=== PATIENT | male | born 1950 | race Caucasian/White ===

== ENCOUNTER 2023-07-15 13:02 | Outpatient (CLI) | payer MEDICARE, SELFPAY | END 2023-07-15 13:03 | disposition home or self-care (01) | PROVIDERS: PCP Family Medicine; Visit Provider Nurse Practitioner Family | DX: E11.621 Type 2 diabetes mellitus with foot ulcer (principal); L97.516 Non-pressure chronic ulcer of other part of right foot with bone involvement without evidence of necrosis; Z79.84 Long term (current) use of oral hypoglycemic drugs | CPT/HCPCS: 11043; 87070; 87186; 99203 ==

== ENCOUNTER 2023-07-22 13:21 | Outpatient (CLI) | payer MEDICARE, SELFPAY | END 2023-07-22 13:22 | disposition home or self-care (01) | LOC: WOUND 13:22 | PROVIDERS: PCP Family Medicine; Visit Provider Nurse Practitioner Family | DX: E11.621 Type 2 diabetes mellitus with foot ulcer (principal); L97.516 Non-pressure chronic ulcer of other part of right foot with bone involvement without evidence of necrosis; Z79.84 Long term (current) use of oral hypoglycemic drugs | CPT/HCPCS: 11043 ==

== ENCOUNTER 2023-07-22 15:10 | Outpatient (CLI) | payer MEDICARE, SELFPAY ==
--- NOTE | 2023-07-22 15:15 | CRLHL7_ITS ---
For Patients: As a result of the Century Cures Act, medical imaging exams and procedure reports are released immediately into your electronic medical record. You may view this report before your referring provider. If you have questions, please contact your health care provider. Indication: non healing wound, assess for osteomyelitis Technique: Right foot 3 views Comparison: None Findings: Demineralization is present about the 2nd MTP joint with an associated fracture fragment at the lateral base of the 2nd toe proximal phalanx. Vascular calcifications are present. Midfoot alignment is normal. Small posterior calcaneal spur. Degenerative changes at the IP joints. Impression: Displaced intra-articular fracture deformity at the 2nd toe proximal phalanx extending to the 2nd MCP joint. Demineralization about the 2nd MTP joint with soft tissue swelling suggesting septic arthritis. Dictated by Andrea Benson MD @ 07/24/2023 8:17:53 AM (Electronically Signed)
== END 2023-07-22 15:11 | disposition home or self-care (01) ==
LOC: RAD 15:10
PROVIDERS: PCP Family Medicine; Visit Provider Nurse Practitioner Family
DX: T81.89XA Other complications of procedures, not elsewhere classified, initial encounter (principal); S92.911A Unspecified fracture of right toe(s), initial encounter for closed fracture; M79.89 Other specified soft tissue disorders
CPT/HCPCS: 73630

== ENCOUNTER 2023-07-25 12:51 | Outpatient (CLI) | payer MEDICARE, SELFPAY ==
--- NOTE | 2023-07-25 13:00 | CRLHL7_ITS ---
For Patients: As a result of the Century Cures Act, medical imaging exams and procedure reports are released immediately into your electronic medical record. You may view this report before your referring provider. If you have questions, please contact your health care provider. CLINICAL HISTORY: Nonhealing right lower extremity wound. COMPARISON: None. TECHNIQUE: The lower extremity arteries were examined per exam specific protocol with taylor-scale ultrasound, color-flow and Doppler spectral analysis. Peak systolic velocities (PSV), Doppler waveform quality and velocity ratios, if applicable, were documented at sites per exam specific protocol. FINDINGS: Right: WELDER EXPERIMENTAL: 139, triphasic. DFA: 149, triphasic. FA Prox: 96, triphasic. FA MID: 111, triphasic. FA DIST: 63, triphasic. POP A: 58, triphasic. HILARY A: 104, monophasic. HAND SAMPLE MAKER: 123, monophasic. SAIRA: 22, monophasic. DPA: 41, monophasic. Left: WELDER EXPERIMENTAL: 119, triphasic. DFA: 86, triphasic. FA PROX: 91, triphasic. FA MID: 147, triphasic. FA DIST: 63, triphasic. POP A: 77, triphasic. HILARY A: 66, biphasic. HAND SAMPLE MAKER: -. SAIRA: 94, triphasic. DPA: 92, triphasic. Right lower extremity: Predominantly multiphasic waveforms are seen throughout with monophasic waveforms in the pedal arteries. No hemodynamically significant stenoses or occlusions are identified. Left lower extremity: Multiphasic waveforms are seen throughout. The posterior tibial artery is distally occluded. No evidence of hemodynamically significant stenoses. IMPRESSION: 1. Right lower extremity: Predominantly multiphasic waveforms throughout. No evidence of hemodynamically significant stenoses or occlusions. 2. Left lower extremity: Multiphasic waveforms throughout. Posterior tibial artery is distally occluded. No evidence of hemodynamically significant stenoses. Dictated by Bernard Mckeon MD @ 07/28/2023 5:02:09 PM (Electronically Signed)
== END 2023-07-25 12:52 | disposition home or self-care (01) ==
LOC: US 12:52
PROVIDERS: PCP Family Medicine; Visit Provider Nurse Practitioner Family
DX: L97.516 Non-pressure chronic ulcer of other part of right foot with bone involvement without evidence of necrosis (principal)
CPT/HCPCS: 93926

== ENCOUNTER 2023-07-29 08:57 | Outpatient (CLI) | payer MEDICARE, SELFPAY | END 2023-07-29 08:58 | disposition home or self-care (01) | LOC: WOUND 08:57 | PROVIDERS: PCP Family Medicine; Visit Provider Nurse Practitioner Family | DX: E11.621 Type 2 diabetes mellitus with foot ulcer (principal); L97.516 Non-pressure chronic ulcer of other part of right foot with bone involvement without evidence of necrosis; Z79.84 Long term (current) use of oral hypoglycemic drugs | CPT/HCPCS: 11043; 99212 ==

== ENCOUNTER 2023-09-09 13:22 | Outpatient (CLI) | payer MEDICARE, SELFPAY | END 2023-09-09 13:23 | disposition home or self-care (01) | LOC: WOUND 13:22 | PROVIDERS: PCP Family Medicine; Visit Provider Nurse Practitioner Family | DX: E11.621 Type 2 diabetes mellitus with foot ulcer (principal); T87.81 Dehiscence of amputation stump; Z79.84 Long term (current) use of oral hypoglycemic drugs | CPT/HCPCS: 11042; G0463 ==

== ENCOUNTER 2023-09-16 12:50 | Outpatient (CLI) | payer MEDICARE, SELFPAY | END 2023-09-16 12:51 | disposition home or self-care (01) | LOC: WOUND 12:51 | PROVIDERS: PCP Family Medicine; Visit Provider Physician Assistant | DX: E11.621 Type 2 diabetes mellitus with foot ulcer (principal); T81.30XA Disruption of wound, unspecified, initial encounter; Z89.421 Acquired absence of other right toe(s); Z79.84 Long term (current) use of oral hypoglycemic drugs | CPT/HCPCS: 97597 ==

== ENCOUNTER 2023-09-23 12:54 | Outpatient (CLI) | payer MEDICARE, SELFPAY | END 2023-09-23 12:55 | disposition home or self-care (01) | LOC: WOUND 12:54 | PROVIDERS: PCP Family Medicine; Visit Provider Family Medicine | DX: T81.31XA Disruption of external operation (surgical) wound, not elsewhere classified, initial encounter (principal); E11.621 Type 2 diabetes mellitus with foot ulcer; Z89.421 Acquired absence of other right toe(s); Z79.84 Long term (current) use of oral hypoglycemic drugs | CPT/HCPCS: 97597 ==